=== PATIENT | male | born 1955 | race Caucasian/White ===

== ENCOUNTER 2017-08-31 13:57 | Emergency (ER) | payer SELFPAY ==
[~2017-08-31] VITALS: Ht 182.9 cm; Wt 88.0 kg
[~2017-08-31 13:57] MED LIST: BP MED UNKNOWN; VALT500T PO
[2017-08-31 14:03] VITALS: BP 136/81; PULSE 104; RESP 14; TEMP 97.8; O2SAT 99
--- NOTE | 2017-08-31 15:14 | PD ---
HPI Chief Complaint: Skin Problem Time Seen by Provider: 14:53 Travel History International Travel<30 days: No Contact w/Intl Traveler<30days: No Traveled to known affect area: No History of Present Illness HPI 61-year-old man, presents with minimally painful genital ulcer. He states he noticed it about 3 or 4 days ago. He states he got out of custodial after having been in custodial for 4 years and had 4 days of sex with a woman that he met. He states initially he thought he just been sort of "rubbed raw" but he had worsening swelling and drainage from the wound. He is a history of genital herpes, but states this feels and looks completely different. No dysuria. No penile discharge. No other complaints. History Past Medical History Narrative Medical HSV Social History Alcohol Use: Yes ( 12 PK A DAY) Tobacco Use: Yes (1 PPD) Allergies-Medications (Allergen,Severity, Reaction): Coded Allergies: No Known Allergies (Verified Adverse Reaction, Unknown, 08/31/17) Reported Meds & Prescriptions Reported Meds & Active Scripts Active No Active Prescriptions or Reported Medications Review of Systems Except as stated in HPI: all other systems reviewed are Neg Physical Exam Narrative GENERAL: Well-appearing 61-year-old man, no acute distress. SKIN: Warm and dry. CARDIOVASCULAR: Warm and well perfused. RESPIRATORY: Normal rate and effort. : Male genitalia with small ulceration on the proximal dorsum of the penis, and a large area of irregular ulcerations on the bottom surface of the penis and a couple smaller scattered ulcerations. Ulcerations are deep with the yellow wound bed, but appears to be a little bit of undercutting and raised wound edges. No vesicles. No purulent drainage. No testicular pain. No penile discharge. Data Data Last Documented VS Vital Signs Date Time Temp Pulse Resp B/P (MAP) Pulse Ox O2 Delivery O2 Flow Rate FiO2 08/31/17 14:03 97.8 104 14 136/81 (99) 99 Orders Orders Ceftriaxone Inj (Rocephin Inj) (08/31/17 15:15) Azithromycin (Zithromax) (08/31/17 15:15) Penicillin G Benzathine Inj (Bicillin L- (08/31/17 15:15) MDM Medical Decision Making Medical Screen Exam Complete: Yes Emergency Medical Condition: Yes Differential Diagnosis Chancroid, syphilis, HSV, skin infection or staph, other Narrative Course Medical decision making 61-year-old male with irregular ulcerated genital lesions, multifocal, no vesicular lesions, appear deeper than I would expect for HSV. Considerations are syphilis and chancroid. Chancroid seems less likely although is less common. Reviewed recommendations, will give empiric treatment for both, penicillin and ceftriaxone. Discussed with the patient. He is agreeable. Diagnosis Primary Impression: Ulcers of genital organ in male Additional Instructions: Followup with your primary physician for followup testing for other sexually transmitted infection such as HIV, hepatitis, syphilis. Any sexual partners you have should be tested and treated as well. You should not have sex until you have no symptoms, and your partners tested and treated as well. Scripts No Active Prescriptions or Reported Meds Disposition: 01 DISCHARGE HOME Condition: Bravo Tovar MD Aug 31, 2017 15:14
[2017-08-31] MEDS ORDERED: AZITHROMYCIN 250 MG TAB PO ONE (15:15)
[2017-08-31] MEDS ORDERED: cefTRIAXone 250 MG VIAL IM ONE (15:15)
[2017-08-31] MEDS ORDERED: PENICILLIN G BENZATHINE 2,400,000 UNITS/4 ML SYRINGE IM ONE (15:15)
== END 2017-08-31 15:56 | disposition home or self-care (01) ==
LOC: NEPD 13:57
DX: N48.5 Ulcer of penis (principal); F17.210 Nicotine dependence, cigarettes, uncomplicated
CPT/HCPCS: 96372; 99283; J0561; J0696